=== PATIENT | female | born 1955 | race African-American/Black ===

== ENCOUNTER 2017-05-23 19:18 | Inpatient (IN) | payer MEDICAID ==
[~2017-05-23] VITALS: Ht 162.6 cm; Wt 99.8 kg
[~2017-05-23 19:18] MED LIST: AMLO10TA80 PO; ATOR10TA PO; FURO-151 PO; GLIP10TA10 PO; HYDR100T26 PO; LABE300T PO; SITA100T11 PO
[2017-05-23] MEDS ORDERED: IPRATROPIUM BROMIDE (0.02%) 0.5MG/2.5ML NEB HHN STA (22:37)
[2017-05-23] MEDS ORDERED: METHYLPREDNISOLONE SOD SUCC 125 MG/2 ML VIAL IV STA (22:37)
[2017-05-23] MEDS ORDERED: ALBUTEROL (0.083%) 2.5MG/3ML NEB HHN STA (22:37)
[2017-05-23 23:21] LABS: BASOPHILS % 0.3 % (0.0-2.0); EOSINOPHILS % 3.2 % (0.0-5.0); HEMATOCRIT. 43.6 % (36.0-48.0); HEMOGLOBIN. 13.7 g/dL (12.0-16.0); LYMPHOCYTES % 14.3 % (20.0-50.0); MEAN CORPUSCULAR HEMOGLOBIN 23.5 pg (28.0-32.0); MEAN CORPUSCULAR VOLUME 74.7 fL (81.0-99.0); MEAN PLATELET VOLUME 8.4 fl (7.4-10.4); MONOCYTES % 6.5 % (2.0-8.0); NEUTROPHILS % 75.7 % (40.0-76.0); PLATELET 227 x1000/uL (130-400); RED BLOOD CELL COUNT 5.84 mill/uL (4.2-5.4); RED CELL DISTRIBUTION WIDTH 19.8 % (11.6-14.6)
[2017-05-23 23:29] LABS: CARBON DIOXIDE 26 mEq/L (21-32); CHLORIDE 104 mEq/L (98-107)
[2017-05-23 23:31] LABS: D-DIMER 1.65 mg/L FEU (<0.50); INR 1.1; PROTHROMBIN TIME 11.7 sec (9.4-11.6)
[2017-05-23 23:36] LABS: TROPONIN I < 0.02 ng/mL (0.00-0.04)
[2017-05-23 23:58] LABS: BG BASE EXCESS -1.9 mmol/L (-2.0-2.0); BG CARBOXYHEMOGLOBIN 1.9 % (0.5-1.5); BG DEOXYHEMOGLOBIN 7.9 % (0.0-5.0); BG FRACTION INSPIRED OXYGEN 36; BG HCO3 ACT 24.3 mmol/L (22.0-26.0); BG METHEMOGLOBIN 0.3 % (0.0-1.5); BG OXYGEN SATURATION 91.9 % (92.0-98.5); BG OXYHEMOGLOBIN 89.9 % (94.0-97.0); BG PCO2 46.9 mmHg (35.0-45.0); BG PH 7.333 (7.350-7.450); BG PO2 67.7 mmHg (75.0-100.0); BG SAMPLE SITE RIGHT RADIAL; BG TOTAL HEMOGLOBIN 14.1 g/dL (12.0-18.0); BG VENT MODE NASAL CANNULA
[2017-05-24 02:02] LABS: CLARITY URINE CLEAR (CLEAR); COLOR URINE YELLOW (YELLOW); GLUCOSE URINE NEGATIVE (NEGATIVE); KETONES URINE NEGATIVE (NEGATIVE); LEUKOCYTE ESTERASE URINE TRACE (NEGATIVE); NITRITE URINE NEGATIVE (NEGATIVE); OCCULT BLOOD URINE NEGATIVE (NEGATIVE); PROTEIN URINE 2+ (NEGATIVE); SPECIFIC GRAVITY URINE 1.014 (1.005-1.030); UROBILINOGEN URINE 0.2 E.U./dL (0.2-1.0)
[2017-05-24] MEDS: FUROSEMIDE 100MG/10ML VIAL IVP SCH ×2 (02:29→02:47)
[2017-05-24 05:30] VITALS: BP 166/81
[2017-05-24] MEDS ORDERED: DEXTROSE 50% WATER 50ML SYRINGE IV PRN ×2 (06:30→14:30)
[2017-05-24 08:00] VITALS: BP 159/96
[2017-05-24] MEDS: BLOOD SUGAR DIAGNOSTIC STRIP TEST SCH ×4 (08:16→21:04)
[2017-05-24] MEDS: INSULIN LISPRO 100 UNITS/ML SUBCUT SCH ×4 (08:41→21:24)
[2017-05-24] MEDS: HYDRALAZINE HCL 100MG TABLET PO SCH ×2 (08:43→13:11)
[2017-05-24] MEDS: LINAGLIPTIN 5MG TABLET PO SCH (08:44)
[2017-05-24] MEDS: GLIPIZIDE 10MG TABLET PO SCH ×2 (08:44→18:34)
[2017-05-24] MEDS: ENOXAPARIN 40MG/0.4ML SYR SUBCUT SCH (08:45)
[2017-05-24] MEDS ORDERED: MEDICATION NOT ON FORMULARY EA (Sitagliptin Phosphate (Januvia) 1 TAB) PO SCH (09:00)
[2017-05-24] MEDS ORDERED: LABETALOL HCL 300MG TABLET PO SCH (09:00)
[2017-05-24 09:14] LABS: CREATINE KINASE 192 IU/L (26-192); CREATINE KINASE MB FRACTION 3.6 ng/mL (0.5-3.6); HDL CHOLESTEROL 52 mg/dL (40-59); LDL CHOLESTEROL 52 mg/dL (5-100); TROPONIN I < 0.02 ng/mL (0.00-0.04)
[2017-05-24 09:25] LABS: BG BASE EXCESS -2.6 mmol/L (-2.0-2.0); BG CARBOXYHEMOGLOBIN 1.8 % (0.5-1.5); BG DEOXYHEMOGLOBIN 8.4 % (0.0-5.0); BG FRACTION INSPIRED OXYGEN 36; BG HCO3 ACT 23.9 mmol/L (22.0-26.0); BG METHEMOGLOBIN 0.4 % (0.0-1.5); BG OXYGEN SATURATION 91.4 % (92.0-98.5); BG OXYHEMOGLOBIN 89.4 % (94.0-97.0); BG PCO2 48.1 mmHg (35.0-45.0); BG PH 7.315 (7.350-7.450); BG SAMPLE SITE RIGHT RADIAL; BG TOTAL HEMOGLOBIN 14.4 g/dL (12.0-18.0); BG VENT MODE NASAL CANNULA
[2017-05-24 12:00] VITALS: BP 159/96
[2017-05-24] MEDS ORDERED: LIDOCAINE HCL/PF 1% 2ML VIAL ONE (14:19)
[2017-05-24 16:00] VITALS: BP 149/86
[2017-05-24] MEDS ORDERED: BLOOD SUGAR DIAGNOSTIC STRIP TEST SCH (17:20)
[2017-05-24] MEDS: FUROSEMIDE 40MG/4ML VIAL IVP SCH (18:33)
[2017-05-24] MEDS: ISOSORBIDE MONONITRATE 30MG TABLET SR 24HR PO SCH (18:34)
[2017-05-24] MEDS: DILTIAZEM HCL 90MG TABLET PO SCH (18:35)
[2017-05-24 19:05] LABS: CREATINE KINASE 206 IU/L (26-192); CREATINE KINASE MB FRACTION 4.1 ng/mL (0.5-3.6); TROPONIN I < 0.02 ng/mL (0.00-0.04)
[2017-05-24 20:00] VITALS: BP 163/77
[2017-05-24] MEDS: CLONIDINE 0.1MG TABLET PO SCH (21:24)
[2017-05-24 22:58] LABS: *AMPHETAMINES SCREEN URINE NEGATIVE (NEGATIVE); *BARBITURATES SCREEN URINE NEGATIVE (NEGATIVE); *BENZODIAZEPINES SCREEN URINE NEGATIVE (NEGATIVE); *COCAINE SCREEN URINE NEGATIVE (NEGATIVE); CANNABINOID URINE SCREEN NEGATIVE (NEGATIVE); METHADONE URINE SCREEN NEGATIVE (NEGATIVE); OPIATES URINE SCREEN NEGATIVE (NEGATIVE); PHENCYCLIDINE URINE SCREEN NEGATIVE (NEGATIVE)
[2017-05-25] MEDS: DILTIAZEM HCL 90MG TABLET PO SCH ×2 (00:15→06:38)
[2017-05-25 00:20] VITALS: BP 150/69
[2017-05-25] MEDS: IPRATROPIUM/ALBUTEROL 0.5-3(2.5)MG/3ML NEB HHN PRN ×2 (02:22→21:08)
[2017-05-25 04:00] VITALS: BP 145/71
[2017-05-25] MEDS: BLOOD SUGAR DIAGNOSTIC STRIP TEST SCH ×4 (06:37→21:37)
[2017-05-25] MEDS: GLIPIZIDE 10MG TABLET PO SCH ×2 (06:38→18:13)
[2017-05-25] MEDS: FUROSEMIDE 40MG/4ML VIAL IVP SCH ×2 (06:38→18:14)
[2017-05-25] MEDS: CLONIDINE 0.1MG TABLET PO SCH ×3 (06:38→21:34)
[2017-05-25 07:20] LABS: BASOPHILS % 0.2 % (0.0-2.0); HEMATOCRIT. 39.2 % (36.0-48.0); HEMOGLOBIN. 12.3 g/dL (12.0-16.0); LYMPHOCYTES % 8.2 % (20.0-50.0); MEAN CORPUSCULAR HEMOGLOBIN 23.5 pg (28.0-32.0); MEAN CORPUSCULAR VOLUME 74.7 fL (81.0-99.0); MEAN PLATELET VOLUME 8.5 fl (7.4-10.4); NEUTROPHILS % 83.6 % (40.0-76.0); PLATELET 226 x1000/uL (130-400); RED BLOOD CELL COUNT 5.25 mill/uL (4.2-5.4); RED CELL DISTRIBUTION WIDTH 19.5 % (11.6-14.6)
[2017-05-25 07:50] VITALS: BP 159/72
[2017-05-25] MEDS: INSULIN LISPRO 100 UNITS/ML SUBCUT SCH ×4 (08:44→21:43)
[2017-05-25] MEDS: ISOSORBIDE MONONITRATE 30MG TABLET SR 24HR PO SCH (09:43)
[2017-05-25] MEDS: ENOXAPARIN 40MG/0.4ML SYR SUBCUT SCH (09:44)
[2017-05-25] MEDS: LINAGLIPTIN 5MG TABLET PO SCH (11:16)
[2017-05-25 15:17] VITALS: BP 156/76
[2017-05-25 19:35] VITALS: BP_SYST 155; BP_SYST 2; BP_DIAS 79
[2017-05-25] MEDS: NIFEDIPINE XL 60MG TAB PO SCH (21:34)
[2017-05-25] MEDS: INSULIN DETEMIR UD 100 UNITS/ML SYR SUBCUT SCH (21:41)
[2017-05-26 00:21] VITALS: BP 157/76
[2017-05-26 04:37] VITALS: BP 128/63
[2017-05-26] MEDS: IPRATROPIUM/ALBUTEROL 0.5-3(2.5)MG/3ML NEB HHN PRN (05:03)
[2017-05-26] MEDS: FUROSEMIDE 40MG/4ML VIAL IVP SCH (06:16)
[2017-05-26] MEDS: CLONIDINE 0.1MG TABLET PO SCH ×2 (06:16→13:34)
[2017-05-26 06:18] LABS: BASOPHILS % 0.2 % (0.0-2.0); EOSINOPHILS % 1.3 % (0.0-5.0); HEMATOCRIT. 41.1 % (36.0-48.0); LYMPHOCYTES % 8.3 % (20.0-50.0); MEAN CORPUSCULAR HEMOGLOBIN 23.6 pg (28.0-32.0); MEAN CORPUSCULAR VOLUME 74.9 fL (81.0-99.0); MEAN PLATELET VOLUME 7.9 fl (7.4-10.4); MONOCYTES % 5.4 % (2.0-8.0); NEUTROPHILS % 84.8 % (40.0-76.0); PLATELET 237 x1000/uL (130-400); RED BLOOD CELL COUNT 5.49 mill/uL (4.2-5.4); RED CELL DISTRIBUTION WIDTH 19.6 % (11.6-14.6)
[2017-05-26] MEDS: BLOOD SUGAR DIAGNOSTIC STRIP TEST SCH ×2 (06:26→12:20)
[2017-05-26 07:35] LABS: PHOSPHORUS 4.4 mg/dL (2.5-4.9); T4 FREE 1.19 ng/dL (0.76-1.46)
[2017-05-26 07:56] VITALS: BP 131/71
[2017-05-26] MEDS: GLIPIZIDE 10MG TABLET PO SCH (09:02)
[2017-05-26] MEDS: ISOSORBIDE MONONITRATE 30MG TABLET SR 24HR PO SCH (09:03)
[2017-05-26] MEDS: NIFEDIPINE XL 60MG TAB PO SCH (09:03)
[2017-05-26] MEDS: LINAGLIPTIN 5MG TABLET PO SCH (09:04)
[2017-05-26] MEDS: ENOXAPARIN 40MG/0.4ML SYR SUBCUT SCH (09:04)
[2017-05-26] MEDS: INSULIN LISPRO 100 UNITS/ML SUBCUT SCH ×2 (09:06→13:34)
[2017-05-26] MEDS: INSULIN DETEMIR UD 100 UNITS/ML SYR SUBCUT SCH (10:13)
[2017-05-26 11:53] VITALS: BP 130/63
[2017-05-26 14:01] VITALS: BP 130/63
[2017-05-27 15:09] LABS: ANTI-NUCLEAR ANTIBODIES DIRECT Negative (Negative)
[2017-05-28 06:11] LABS: COMPLEMENT C3 84 mg/dL (82-167)
[2017-05-31 14:18] LABS: ANA IFA Negative (.)
== END 2017-05-26 14:34 | disposition home or self-care (01) | DRG 133 ==
LOC: ER 21:35 → 6WST 05-24 01:01 → EDBEDREQTM 05-24 01:02 → EDBEDREQ 05-24 01:02 → ENRESERV 05-24 02:38
PROVIDERS: ADMIT Internal Medicine; ATTEND Internal Medicine
DX: J96.01 Acute respiratory failure with hypoxia (principal); I50.31 Acute diastolic (congestive) heart failure; E87.2 Acidosis; E11.22 Type 2 diabetes mellitus with diabetic chronic kidney disease; J44.1 Chronic obstructive pulmonary disease with (acute) exacerbation; N18.3 Chronic kidney disease, stage 3 (moderate); J96.02 Acute respiratory failure with hypercapnia; N13.30 Unspecified hydronephrosis; N39.0 Urinary tract infection, site not specified; E66.01 Morbid (severe) obesity due to excess calories; I13.0 Hypertensive heart and chronic kidney disease with heart failure and stage 1 through stage 4 chronic kidney disease, or unspecified chronic kidney disease; Z68.1 Body mass index [BMI] 19.9 or less, adult; Z79.84 Long term (current) use of oral hypoglycemic drugs; Z79.899 Other long term (current) drug therapy; Z99.81 Dependence on supplemental oxygen; Z98.891 History of uterine scar from previous surgery; Z82.49 Family history of ischemic heart disease and other diseases of the circulatory system
CPT/HCPCS: 36415; 36600; 71010; 71250; 76770; 80048; 80053; 80061; 80076; 80305; 81001; 81025; 82375; 82550; 82553; 82570; 82805; 82962; 83735; 83880; 84100; 84156; 84439; 84443; 84484; 85025; 85379; 85610; 86038; 86160; 86256; 87086; 93005; 93306; 93970; 94640; 96365; 96375; 99291; J1650; J1815; J1940; J2930; J3490; J7611; J7620

== ENCOUNTER 2018-09-21 11:51 | Inpatient (IN) | payer MEDICAID ==
[~2018-09-21] VITALS: Ht 162.6 cm; Wt 90.7 kg
[~2018-09-21 11:51] MED LIST changes: +ALBU18HF2 IH; +CARV6.2548 PO; -HYDR100T26 PO; -LABE300T PO; +POTA10CA42 PO; +SPIR25TA6 PO
[2018-09-21] MEDS ORDERED: ONDANSETRON HCL 4MG/2ML INJ IV STA (12:22)
[2018-09-21] MEDS ORDERED: ASPIRIN 81MG TABLET PO ONE (12:30)
[2018-09-21] MEDS ORDERED: FUROSEMIDE 40MG/4ML VIAL IV ONE (12:30)
[2018-09-21] MEDS ORDERED: NITROGLYCERIN OINT 1GM/INCH UDPKT TD ONE (12:30)
[2018-09-21] MEDS ORDERED: ACETAMINOPHEN 325MG TABLET PO ONE (12:30)
[2018-09-21 13:05] LABS: CHLORIDE 106 mEq/L (98-107)
[2018-09-21 13:07] LABS: BASOPHILS % 0.6 % (0.0-2.0); EOSINOPHILS % 2.3 % (0.0-5.0); HEMATOCRIT. 40.2 % (36.0-48.0); HEMOGLOBIN. 12.8 g/dL (12.0-16.0); LYMPHOCYTES % 15.8 % (20.0-50.0); MEAN CORPUSCULAR HEMOGLOBIN 25.3 pg (28.0-32.0); MEAN PLATELET VOLUME 7.5 fl (7.4-10.4); MONOCYTES % 5.7 % (2.0-8.0); NEUTROPHILS % 75.6 % (40.0-76.0); PLATELET 233 x1000/uL (130-400); RED BLOOD CELL COUNT 5.08 mill/uL (4.2-5.4); RED CELL DISTRIBUTION WIDTH 17.7 % (11.6-14.6)
[2018-09-21 13:42] LABS: INR 1.1; PARTIAL THROMBOPLASTIN TIME 29.6 sec (23.4-31.0); PROTHROMBIN TIME 10.9 sec (9.1-11.1)
[2018-09-21] MEDS ORDERED: ONDANSETRON HCL 4MG/2ML INJ IV PRN (14:45)
[2018-09-21] MEDS ORDERED: LORAZEPAM 0.5MG TABLET PO PRN (14:45)
[2018-09-21] MEDS ORDERED: CLONIDINE 0.1MG TABLET PO PRN ×2 (14:45→17:30)
[2018-09-21] MEDS ORDERED: IPRATROPIUM/ALBUTEROL 0.5-3(2.5)MG/3ML NEB INH PRN (14:45)
[2018-09-21] MEDS ORDERED: HYDROCODONE/ACETAMINOPHEN 5/325MG TABLET PO PRN (14:45)
[2018-09-21] MEDS ORDERED: DOCUSATE SODIUM 100MG CAPSULE PO PRN (14:45)
[2018-09-21 15:04] LABS: CREATINE KINASE MB FRACTION 5.4 ng/mL (0.5-3.6)
[2018-09-21] MEDS ORDERED: AMLODIPINE 10MG TABLET PO NR (16:15)
[2018-09-21] MEDS ORDERED: CARVEDILOL 6.25 MG TABLET PO NR (16:30)
[2018-09-21 18:28] VITALS: BP 167/79
[2018-09-21] MEDS: FUROSEMIDE 40MG TABLET PO SCH (18:46)
[2018-09-21 18:49] VITALS: BP 163/67
[2018-09-21 20:00] VITALS: BP 172/80
[2018-09-21] MEDS ORDERED: DEXTROSE 50% WATER 50ML SYRINGE IV PRN (20:15)
[2018-09-21] MEDS: INSULIN LISPRO 100 UNITS/ML SUBCUT SCH (21:00)
[2018-09-21] MEDS: BLOOD SUGAR DIAGNOSTIC STRIP TEST SCH (21:05)
[2018-09-21] MEDS: ATORVASTATIN CALCIUM 10MG TABLET PO SCH (21:05)
[2018-09-22] VITALS: BP 159/76
[2018-09-22 01:10] LABS: CLARITY URINE CLEAR (CLEAR); COLOR URINE YELLOW (YELLOW); KETONES URINE NEGATIVE (NEGATIVE); LEUKOCYTE ESTERASE URINE NEGATIVE (NEGATIVE); NITRITE URINE NEGATIVE (NEGATIVE); OCCULT BLOOD URINE NEGATIVE (NEGATIVE); PROTEIN URINE 3+ (NEGATIVE); SPECIFIC GRAVITY URINE 1.011 (1.005-1.030); UROBILINOGEN URINE 0.2 E.U./dL (0.2-1.0)
[2018-09-22 01:22] LABS: *BARBITURATES SCREEN URINE NEGATIVE (NEGATIVE); *BENZODIAZEPINES SCREEN URINE NEGATIVE (NEGATIVE); *COCAINE SCREEN URINE NEGATIVE (NEGATIVE); CANNABINOID URINE SCREEN NEGATIVE (NEGATIVE)
[2018-09-22 01:23] LABS: *AMPHETAMINES SCREEN URINE NEGATIVE (NEGATIVE); METHADONE URINE SCREEN NEGATIVE (NEGATIVE); OPIATES URINE SCREEN NEGATIVE (NEGATIVE); PHENCYCLIDINE URINE SCREEN NEGATIVE (NEGATIVE)
[2018-09-22 04:00] VITALS: BP 148/86
[2018-09-22] MEDS: BLOOD SUGAR DIAGNOSTIC STRIP TEST SCH ×4 (06:34→21:05)
[2018-09-22] MEDS: INSULIN LISPRO 100 UNITS/ML SUBCUT SCH ×4 (06:34→21:00)
[2018-09-22 08:00] VITALS: BP 162/75
[2018-09-22] MEDS: ENOXAPARIN 40MG/0.4ML SYR SUBCUT SCH (08:32)
[2018-09-22] MEDS: FUROSEMIDE 40MG TABLET PO SCH (08:33)
[2018-09-22] MEDS ORDERED: SPIRONOLACTONE 25MG TABLET PO SCH (09:00)
[2018-09-22] MEDS ORDERED: CARVEDILOL 6.25 MG TABLET PO SCH (09:00)
[2018-09-22] MEDS ORDERED: AMLODIPINE 10MG TABLET PO SCH (09:00)
[2018-09-22 09:45] LABS: HEMATOCRIT. 38.6 % (36.0-48.0); HEMOGLOBIN. 12.2 g/dL (12.0-16.0); MEAN CORPUSCULAR HEMOGLOBIN 25.3 pg (28.0-32.0); MEAN CORPUSCULAR VOLUME 79.9 fL (81.0-99.0); MEAN PLATELET VOLUME 7.7 fl (7.4-10.4); PLATELET 218 x1000/uL (130-400); RED BLOOD CELL COUNT 4.84 mill/uL (4.2-5.4); RED CELL DISTRIBUTION WIDTH 17.3 % (11.6-14.6)
[2018-09-22 10:07] LABS: PHOSPHORUS 5.1 mg/dL (2.5-4.9)
[2018-09-22 12:00] VITALS: BP 151/70
[2018-09-22 16:00] VITALS: BP 186/85
[2018-09-22] MEDS: DILTIAZEM HCL 60MG TABLET PO SCH (17:20)
[2018-09-22] MEDS: HYDRALAZINE 20MG/ML VIAL IV PRN (17:23)
[2018-09-22 20:00] VITALS: BP 154/80
[2018-09-22] MEDS: HYDRALAZINE HCL 25MG TABLET PO SCH (21:05)
[2018-09-22] MEDS: ATORVASTATIN CALCIUM 10MG TABLET PO SCH (21:05)
[2018-09-22 22:34] LABS: PLATELET ESTIMATE NORMAL
[2018-09-23] VITALS (7 sets, daily range): BP systolic 137–187; BP diastolic 69–84
[2018-09-23] MEDS: ACETAMINOPHEN 325MG TABLET PO PRN ×2 (00:50→23:03)
[2018-09-23] MEDS: BLOOD SUGAR DIAGNOSTIC STRIP TEST SCH ×4 (06:20→20:33)
[2018-09-23] MEDS: DILTIAZEM HCL 60MG TABLET PO SCH ×2 (06:20)
[2018-09-23] MEDS: HYDRALAZINE HCL 25MG TABLET PO SCH (06:20)
[2018-09-23] MEDS: INSULIN LISPRO 100 UNITS/ML SUBCUT SCH ×4 (06:28→20:39)
[2018-09-23 07:18] LABS: BASOPHILS % 0.4 % (0.0-2.0); EOSINOPHILS % 3.4 % (0.0-5.0); HEMATOCRIT. 38.1 % (36.0-48.0); HEMOGLOBIN. 12.1 g/dL (12.0-16.0); LYMPHOCYTES % 20.6 % (20.0-50.0); MEAN CORPUSCULAR HEMOGLOBIN 25.2 pg (28.0-32.0); MEAN CORPUSCULAR VOLUME 79.3 fL (81.0-99.0); MEAN PLATELET VOLUME 7.8 fl (7.4-10.4); MONOCYTES % 8.5 % (2.0-8.0); NEUTROPHILS % 67.1 % (40.0-76.0); PLATELET 231 x1000/uL (130-400); RED CELL DISTRIBUTION WIDTH 17.4 % (11.6-14.6)
[2018-09-23 07:31] LABS: CHLORIDE 103 mEq/L (98-107)
[2018-09-23 08:06] LABS: PHOSPHORUS 4.3 mg/dL (2.5-4.9)
[2018-09-23] MEDS: ENOXAPARIN 40MG/0.4ML SYR SUBCUT SCH (08:21)
[2018-09-23] MEDS: HYDRALAZINE 20MG/ML VIAL IV PRN ×2 (08:21→16:21)
[2018-09-23] MEDS: FUROSEMIDE 40MG TABLET PO SCH ×2 (08:21→11:45)
[2018-09-23] MEDS: DILTIAZEM HCL 90MG TABLET PO SCH ×3 (13:42→23:04)
[2018-09-23] MEDS: CLONIDINE 0.1MG TABLET PO SCH ×2 (13:43→22:00)
[2018-09-23] MEDS: ATORVASTATIN CALCIUM 10MG TABLET PO SCH (20:36)
[2018-09-23 21:34] LABS: HEPATITIS B SURFACE ANTIGEN NEGATIVE
[2018-09-24] VITALS: BP 177/77
[2018-09-24 04:00] VITALS: BP 168/70
[2018-09-24] MEDS: DILTIAZEM HCL 90MG TABLET PO SCH ×2 (05:00→11:42)
[2018-09-24] MEDS: CLONIDINE 0.1MG TABLET PO SCH (05:00)
[2018-09-24] MEDS: BLOOD SUGAR DIAGNOSTIC STRIP TEST SCH ×2 (06:11→11:42)
[2018-09-24] MEDS: INSULIN LISPRO 100 UNITS/ML SUBCUT SCH ×2 (06:32→11:44)
[2018-09-24 08:00] VITALS: BP 162/77
[2018-09-24] MEDS: ENOXAPARIN 40MG/0.4ML SYR SUBCUT SCH (09:04)
[2018-09-24] MEDS: FUROSEMIDE 40MG TABLET PO SCH (09:04)
[2018-09-24] MEDS ORDERED: DILTIAZEM HCL 120MG CAPSULE CD 24HR PO SCH (12:00)
[2018-09-24 12:02] VITALS: BP 171/80
[2018-09-24 13:29] VITALS: BP 171/71
[2018-09-24] MEDS: HYDRALAZINE 20MG/ML VIAL IV PRN (13:38)
[2018-09-24] MEDS ORDERED: CLONIDINE 0.3MG TABLET PO SCH (14:00)
[2018-09-24] MEDS ORDERED: HYDRALAZINE HCL 50MG TABLET PO SCH (21:00)
[2018-09-25 09:06] LABS: IMMUNOGLOBULIN A 312 mg/dL (87-352); IMMUNOGLOBULIN G 975 mg/dL (700-1600); IMMUNOGLOBULIN M 96 mg/dL (26-217)
[2018-09-25 17:10] LABS: A/G RATIO 1.1 (0.7-1.7); ALPHA-1-GLOBULIN 0.3 g/dL (0.0-0.4); ALPHA-2-GLOBULIN 1.1 g/dL (0.4-1.0); BETA GLOBULIN 1.2 g/dL (0.7-1.3); GAMMA GLOBULINS 1.1 g/dL (0.4-1.8); GLOBULIN TOTAL 3.7 g/dL (2.2-3.9); M-SPIKE Not Observed g/dL (Not Observed); TOTAL PROTEIN SERUM 7.7 g/dL (6.0-8.5)
[2018-09-26 09:06] LABS: GLOMERULAR BASEMENT MEMB AB 6 units (0-20)
[2018-09-26 13:06] LABS: COMPLEMENT C3 154 mg/dL (82-167)
[2018-09-26 15:09] LABS: ANTI-MYELOPEROXIDASE AB < 9.0 U/mL (0.0-9.0); ANTI-PROTEINASE 3 ABS 5.3 U/mL (0.0-3.5)
[2018-09-27 09:07] LABS: ANTI-DNA DOUBLE STRANDED QUANT 5 IU/mL (0-9); ANTI-NUCLEAR ANTIBODIES DIRECT Negative (Negative)
[2018-09-27 14:19] LABS: ATYPICAL P-ANCA <1:20 titer (Neg:<1:20); CYTOPLASMIC C-ANCA <1:20 titer (Neg:<1:20); PERINUCLEAR P-ANCA <1:20 titer (Neg:<1:20)
== END 2018-09-24 14:13 | disposition home or self-care (01) | DRG 199 ==
LOC: ER 11:51 → 5WST 13:36 → EDBEDREQ 14:29 → EDBEDREQTM 14:29 → ENRESERV 16:04
PROVIDERS: ADMIT Internal Medicine; ATTEND Internal Medicine
DX: I16.0 Hypertensive urgency (principal); I24.9 Acute ischemic heart disease, unspecified; E11.22 Type 2 diabetes mellitus with diabetic chronic kidney disease; N17.9 Acute kidney failure, unspecified; E11.65 Type 2 diabetes mellitus with hyperglycemia; E66.01 Morbid (severe) obesity due to excess calories; N18.4 Chronic kidney disease, stage 4 (severe); I27.20 Pulmonary hypertension, unspecified; N13.30 Unspecified hydronephrosis; R07.89 Other chest pain; I13.0 Hypertensive heart and chronic kidney disease with heart failure and stage 1 through stage 4 chronic kidney disease, or unspecified chronic kidney disease; D64.9 Anemia, unspecified; J44.9 Chronic obstructive pulmonary disease, unspecified; Z79.84 Long term (current) use of oral hypoglycemic drugs; Z82.49 Family history of ischemic heart disease and other diseases of the circulatory system; Z86.73 Personal history of transient ischemic attack (TIA), and cerebral infarction without residual deficits; Z99.81 Dependence on supplemental oxygen; Z98.891 History of uterine scar from previous surgery; Z88.8 Allergy status to other drugs, medicaments and biological substances; Z79.899 Other long term (current) drug therapy; Z68.34 Body mass index [BMI] 34.0-34.9, adult; I50.32 Chronic diastolic (congestive) heart failure; M94.0 Chondrocostal junction syndrome [Tietze]
CPT/HCPCS: 36415; 71045; 76770; 80048; 80061; 80305; 82550; 82553; 82784; 82962; 83036; 83520; 83735; 83880; 84100; 84155; 84165; 84443; 84484; 86038; 86160; 86225; 86256; 86334; 86803; 87340; 93005; 93306; 93970; 96374; 96375; 99285; J0360; J1650; J1815; J1940; J2405

== ENCOUNTER 2019-11-27 10:36 | Inpatient (IN) | payer MEDICAID ==
[~2019-11-27] VITALS: Ht 175.3 cm; Wt 74.8 kg
[2019-11-27] MEDS ORDERED: ONDANSETRON HCL 4MG/2ML INJ IV STA (10:53)
[2019-11-27] MEDS ORDERED: MORPHINE SULFATE 4 MG/ML CPJ (NOT FOR IM USE) IV STA (10:53)
[2019-11-27 11:13] LABS: BASOPHILS % 0.4 % (0.0-2.0); EOSINOPHILS % 2.6 % (0.0-5.0); HEMATOCRIT. 38.1 % (36.0-48.0); HEMOGLOBIN. 12.7 g/dL (12.0-16.0); LYMPHOCYTES % 14.5 % (20.0-50.0); MEAN CORPUSCULAR HEMOGLOBIN 29.8 pg (28.0-32.0); MEAN CORPUSCULAR VOLUME 89.5 fL (81.0-99.0); MEAN PLATELET VOLUME 8.4 fl (7.4-10.4); MONOCYTES % 7.4 % (2.0-8.0); NEUTROPHILS % 75.1 % (40.0-76.0); PLATELET 157 x1000/uL (130-400); RED BLOOD CELL COUNT 4.26 mill/uL (4.2-5.4); RED CELL DISTRIBUTION WIDTH 18.2 % (11.6-14.6)
[2019-11-27 11:20] LABS: CHLORIDE 103 mEq/L (98-107)
[2019-11-27 11:37] LABS: INR 1.1; PARTIAL THROMBOPLASTIN TIME 66.9 sec (23.4-31.0); PROTHROMBIN TIME 11.4 sec (9.6-11.0)
[2019-11-27 15:15] VITALS: BP 171/81
[2019-11-27] MEDS ORDERED: LABE300T3 PO (15:44)
[2019-11-27] MEDS ORDERED: HYDR100T26 PO (15:45)
[2019-11-27 16:00] VITALS: BP 132/74
[2019-11-27] MEDS ORDERED: ACETAMINOPHEN 325MG TABLET PO PRN (16:00)
[2019-11-27] MEDS ORDERED: ONDANSETRON HCL 4MG/2ML INJ IV PRN (16:00)
[2019-11-27] MEDS ORDERED: GUAIFENESIN 200MG/10ML SUGAR FREE UDC PO PRN (16:00)
[2019-11-27] MEDS ORDERED: HYDROCODONE/ACETAMINOPHEN 5/325MG TABLET PO PRN (16:00)
[2019-11-27] MEDS ORDERED: NON FORMULARY PATIENT HOME MED XX SCH (16:00)
[2019-11-27] MEDS ORDERED: LORAZEPAM 0.5MG TABLET PO PRN (16:00)
[2019-11-27] MEDS ORDERED: IPRATROPIUM/ALBUTEROL 0.5-3(2.5)MG/3ML NEB HHN PRN (16:00)
[2019-11-27] MEDS ORDERED: DOCUSATE SODIUM 100MG CAPSULE PO PRN (16:00)
[2019-11-27] MEDS ORDERED: NITROGLYCERIN 0.4MG TABLET SL SL PRN (16:00)
[2019-11-27] MEDS ORDERED: DEXTROSE 50% WATER 50ML SYRINGE IV PRN (16:00)
[2019-11-27] MEDS: LABETALOL HCL 300MG TABLET PO SCH (17:00)
[2019-11-27] MEDS: FUROSEMIDE 40MG TABLET PO SCH (17:00)
[2019-11-27] MEDS: LINAGLIPTIN 5MG TABLET PO SCH (17:00)
[2019-11-27] MEDS: BLOOD SUGAR DIAGNOSTIC STRIP TEST SCH ×2 (18:07→21:00)
[2019-11-27] MEDS: INSULIN LISPRO 100 UNITS/ML SUBCUT SCH ×2 (18:07→22:56)
[2019-11-27] MEDS: GLIPIZIDE 10MG TABLET PO SCH (18:10)
[2019-11-27 20:00] VITALS: BP 149/53
[2019-11-27] MEDS ORDERED: HYDRALAZINE HCL 100MG TABLET PO SCH (21:00)
[2019-11-27] MEDS: HEPARIN 5000 UNITS/ML VIAL SUBCUT SCH (22:50)
[2019-11-28] VITALS (7 sets, daily range): BP systolic 148–181; BP diastolic 67–89
[2019-11-28 07:04] LABS: BASOPHILS % 0.4 % (0.0-2.0); EOSINOPHILS % 4.5 % (0.0-5.0); HEMATOCRIT. 37.2 % (36.0-48.0); HEMOGLOBIN. 12.3 g/dL (12.0-16.0); LYMPHOCYTES % 20.7 % (20.0-50.0); MEAN CORPUSCULAR HEMOGLOBIN 29.8 pg (28.0-32.0); MEAN CORPUSCULAR VOLUME 90.2 fL (81.0-99.0); MEAN PLATELET VOLUME 8.2 fl (7.4-10.4); NEUTROPHILS % 66.4 % (40.0-76.0); PLATELET 152 x1000/uL (130-400); RED BLOOD CELL COUNT 4.12 mill/uL (4.2-5.4); RED CELL DISTRIBUTION WIDTH 18.3 % (11.6-14.6)
[2019-11-28 07:17] LABS: PHOSPHORUS 6.2 mg/dL (2.5-4.9)
[2019-11-28] MEDS: BLOOD SUGAR DIAGNOSTIC STRIP TEST SCH ×3 (08:05→17:34)
[2019-11-28] MEDS: INSULIN LISPRO 100 UNITS/ML SUBCUT SCH ×3 (08:10→17:50)
[2019-11-28] MEDS: LABETALOL HCL 300MG TABLET PO SCH (09:00)
[2019-11-28] MEDS: LINAGLIPTIN 5MG TABLET PO SCH (09:07)
[2019-11-28] MEDS: GLIPIZIDE 10MG TABLET PO SCH ×2 (09:07→17:50)
[2019-11-28] MEDS: FUROSEMIDE 40MG TABLET PO SCH (09:07)
[2019-11-28] MEDS: HEPARIN 5000 UNITS/ML VIAL SUBCUT SCH (09:08)
== END 2019-11-28 19:20 | disposition home or self-care (01) | DRG 203 ==
LOC: ER 10:36 → EDBEDREQ 11:06 → 7WST 12:52 → EDBEDREQ 12:56 → EDBEDREQTM 12:56 → ENRESERV 13:13 → 6WST 11-28 12:16
PROVIDERS: ADMIT Internal Medicine; ATTEND Internal Medicine
PROC: 5A1D70Z Performance of Urinary Filtration, Intermittent, Less than 6 Hours Per Day (ICD-10-PCS; principal; 2019-11-27)
DX: M94.0 Chondrocostal junction syndrome [Tietze] (principal); I13.2 Hypertensive heart and chronic kidney disease with heart failure and with stage 5 chronic kidney disease, or end stage renal disease; I27.21 Secondary pulmonary arterial hypertension; E11.22 Type 2 diabetes mellitus with diabetic chronic kidney disease; N18.6 End stage renal disease; I42.9 Cardiomyopathy, unspecified; Z99.81 Dependence on supplemental oxygen; J44.9 Chronic obstructive pulmonary disease, unspecified; D72.810 Lymphocytopenia; I50.9 Heart failure, unspecified; Z86.73 Personal history of transient ischemic attack (TIA), and cerebral infarction without residual deficits; Z88.8 Allergy status to other drugs, medicaments and biological substances; Z79.84 Long term (current) use of oral hypoglycemic drugs; Z79.899 Other long term (current) drug therapy; Z82.49 Family history of ischemic heart disease and other diseases of the circulatory system; Z99.2 Dependence on renal dialysis; Z88.6 Allergy status to analgesic agent
CPT/HCPCS: 36415; 71045; 80048; 80053; 80061; 82962; 83036; 83735; 83880; 84100; 84484; 85025; 93005; 93306; 99285; J1644; J1815; J2270; J2405

== ENCOUNTER 2019-12-06 09:26 | Inpatient (IN) | payer MEDICAID ==
[~2019-12-06] VITALS: Ht 167.6 cm; Wt 92.8 kg
[~2019-12-06 09:26] MED LIST changes: -AMLO10TA80 PO; -ATOR10TA PO; -CARV6.2548 PO; +HYDR100T26 PO; +LABE300T3 PO; -POTA10CA42 PO; -SPIR25TA6 PO
[2019-12-06 11:47] LABS: BASOPHILS % 0.5 % (0.0-2.0); EOSINOPHILS % 2.8 % (0.0-5.0); HEMATOCRIT. 39.6 % (36.0-48.0); HEMOGLOBIN. 12.9 g/dL (12.0-16.0); LYMPHOCYTES % 23.2 % (20.0-50.0); MEAN CORPUSCULAR HEMOGLOBIN 29.8 pg (28.0-32.0); MEAN CORPUSCULAR VOLUME 91.7 fL (81.0-99.0); MEAN PLATELET VOLUME 9.5 fl (7.4-10.4); MONOCYTES % 8.4 % (2.0-8.0); NEUTROPHILS % 65.1 % (40.0-76.0); PLATELET 193 x1000/uL (130-400); RED BLOOD CELL COUNT 4.32 mill/uL (4.2-5.4); RED CELL DISTRIBUTION WIDTH 18.2 % (11.6-14.6)
[2019-12-06 11:54] LABS: CHLORIDE 104 mEq/L (98-107)
[2019-12-06] MEDS ORDERED: DEXTROSE 50% WATER 50ML SYRINGE IV ONE (18:00)
[2019-12-06] MEDS ORDERED: INSULIN REGULAR (HUMULIN R) 300UNITS/3ML IV ONE (18:00)
[2019-12-06] MEDS ORDERED: SODIUM POLYSTYRENE SULFONATE 15 G/60 ML BOT PO ONE (18:15)
[2019-12-06] MEDS ORDERED: SODIUM BICARBONATE 8.4% 1 MEQ/ML 50ML SYR IV ONE ×2 (18:19→18:45)
[2019-12-06 20:25] VITALS: BP 184/93
[2019-12-06] MEDS ORDERED: DIPHENHYDRAMINE 25MG CAPSULE PO PRN (22:30)
[2019-12-06] MEDS ORDERED: MORPHINE SULFATE 2 MG/ML CPJ (NOT FOR IM USE) IV PRN (22:30)
[2019-12-06] MEDS ORDERED: DEXTROSE 50% WATER 50ML SYRINGE IV PRN (22:30)
[2019-12-06] MEDS ORDERED: ACETAMINOPHEN 325MG TABLET PO PRN (22:30)
[2019-12-06] MEDS ORDERED: SODIUM POLYSTYRENE SULFONATE 15 G/60 ML BOT PO NR (23:30)
[2019-12-07] VITALS (76 sets, daily range): BP systolic 88–195; BP diastolic 51–94
[2019-12-07] MEDS: AMLODIPINE 10MG TABLET PO SCH (00:02)
[2019-12-07 00:56] LABS: CHLORIDE 102 mEq/L (98-107)
[2019-12-07] MEDS ORDERED: HYDRALAZINE 20MG/ML VIAL IV PRN (01:00)
[2019-12-07 01:02] LABS: LDL CHOLESTEROL 98 mg/dL (5-100)
[2019-12-07 01:06] LABS: HDL CHOLESTEROL 71 mg/dL (40-59)
[2019-12-07] MEDS ORDERED: LORAZEPAM 2MG/ML CPJ IV PRN ×2 (01:30→03:45)
[2019-12-07 05:14] LABS: HEMATOCRIT. 40.9 % (36.0-48.0); HEMOGLOBIN. 13.2 g/dL (12.0-16.0); MEAN CORPUSCULAR HEMOGLOBIN 29.6 pg (28.0-32.0); MEAN CORPUSCULAR VOLUME 91.7 fL (81.0-99.0); MEAN PLATELET VOLUME 9.5 fl (7.4-10.4); PLATELET 238 x1000/uL (130-400); RED BLOOD CELL COUNT 4.46 mill/uL (4.2-5.4); RED CELL DISTRIBUTION WIDTH 18.2 % (11.6-14.6)
[2019-12-07 05:53] LABS: PHOSPHORUS 8.8 mg/dL (2.5-4.9)
[2019-12-07] MEDS: LEVETIRACETAM 1,000 MG in SODIUM CHLORIDE 0.9% 100 ML IV SCH ×2 (06:17→23:51)
[2019-12-07] MEDS: INSULIN LISPRO 100 UNITS/ML SUBCUT SCH ×4 (07:00→17:00)
[2019-12-07] MEDS: SEVELAMER CARBONATE 800 MG TABLET PO SCH ×3 (07:00→17:00)
[2019-12-07] MEDS: BLOOD SUGAR DIAGNOSTIC STRIP TEST SCH ×4 (07:00→17:20)
[2019-12-07] MEDS: ASPIRIN 81MG EC TABLET PO SCH (09:00)
[2019-12-07] MEDS: METOPROLOL TARTRATE 50MG TABLET PO SCH ×2 (09:00→23:51)
[2019-12-07] MEDS: ISOSORBIDE MONONITRATE 60MG TABLET SR 24HR PO SCH (09:00)
[2019-12-07] MEDS: FOLIC ACID/VITAMIN B COMP W-C TABLET PO SCH (09:00)
[2019-12-07] MEDS ORDERED: AMLODIPINE 10MG TABLET PO SCH (09:00)
[2019-12-07 09:51] LABS: BG BASE EXCESS -5.5 mmol/L (-2.0-2.0); BG CARBOXYHEMOGLOBIN 0.3 % (0.5-1.5); BG DEOXYHEMOGLOBIN 3.6 % (0.0-5.0); BG FRACTION INSPIRED OXYGEN 48; BG HCO3 ACT 21.3 mmol/L (22.0-26.0); BG OXYGEN SATURATION 96.4 % (92.0-98.5); BG OXYHEMOGLOBIN 96.1 % (94.0-97.0); BG PCO2 46.3 mmHg (35.0-45.0); BG SAMPLE SITE RIGHT BRACHIAL; BG TOTAL HEMOGLOBIN 12.6 g/dL (12.0-18.0); BG VENT MODE NASAL CANNULA
[2019-12-07 12:49] LABS: PLATELET ESTIMATE NORMAL
[2019-12-07] MEDS ORDERED: CEFEPIME 2,000 MG in DEXT 5% WATER 100 ML IV SCH (22:30)
[2019-12-07] MEDS: ATORVASTATIN CALCIUM 40MG TABLET PO SCH (23:51)
[2019-12-08] VITALS (44 sets, daily range): BP systolic 102–210; BP diastolic 53–116
[2019-12-08] MEDS ORDERED: CEFEPIME 1,000 MG in DEXTROSE 5% WATER 50 ML IV NR (01:00)
[2019-12-08 05:44] LABS: BASOPHILS % 0.2 % (0.0-2.0); EOSINOPHILS % 0.4 % (0.0-5.0); HEMATOCRIT. 38.4 % (36.0-48.0); HEMOGLOBIN. 12.8 g/dL (12.0-16.0); LYMPHOCYTES % 7.3 % (20.0-50.0); MEAN CORPUSCULAR HEMOGLOBIN 29.8 pg (28.0-32.0); MEAN CORPUSCULAR VOLUME 89.9 fL (81.0-99.0); MEAN PLATELET VOLUME 9.2 fl (7.4-10.4); MONOCYTES % 4.9 % (2.0-8.0); NEUTROPHILS % 87.2 % (40.0-76.0); PLATELET 200 x1000/uL (130-400); RED BLOOD CELL COUNT 4.28 mill/uL (4.2-5.4); RED CELL DISTRIBUTION WIDTH 17.3 % (11.6-14.6)
[2019-12-08 05:51] LABS: PHOSPHORUS 5.9 mg/dL (2.5-4.9)
[2019-12-08] MEDS: BLOOD SUGAR DIAGNOSTIC STRIP TEST SCH ×4 (06:52→21:41)
[2019-12-08] MEDS: INSULIN LISPRO 100 UNITS/ML SUBCUT SCH ×4 (06:53→21:00)
[2019-12-08] MEDS: SEVELAMER CARBONATE 800 MG TABLET PO SCH ×3 (07:01→18:10)
[2019-12-08] MEDS: LEVETIRACETAM 1,000 MG in SODIUM CHLORIDE 0.9% 100 ML IV SCH ×2 (08:23→22:12)
[2019-12-08] MEDS: ASPIRIN 81MG EC TABLET PO SCH (08:23)
[2019-12-08] MEDS: FOLIC ACID/VITAMIN B COMP W-C TABLET PO SCH (08:24)
[2019-12-08] MEDS: ZINC SULFATE 220 MG ( 50 ) CAPSULE PO SCH (08:24)
[2019-12-08] MEDS: AMLODIPINE 10MG TABLET PO SCH (08:24)
[2019-12-08] MEDS: METOPROLOL TARTRATE 50MG TABLET PO SCH ×2 (08:25→21:41)
[2019-12-08] MEDS: ISOSORBIDE MONONITRATE 60MG TABLET SR 24HR PO SCH (08:25)
[2019-12-08] MEDS: ASCORBIC ACID 500 MG TABLET PO SCH ×2 (08:25→21:41)
[2019-12-08] MEDS ORDERED: HYDROXYCHLOROQUINE SULFATE 200MG TABLET PO SCH ×2 (13:30)
[2019-12-08] MEDS: ATORVASTATIN CALCIUM 40MG TABLET PO SCH (21:41)
[2019-12-09] VITALS: BP 148/82
[2019-12-09] MEDS: CEFEPIME 500 MG in DEXTROSE 5% WATER 50 ML IV SCH (02:30)
[2019-12-09 04:00] VITALS: BP 159/74
[2019-12-09] MEDS: BLOOD SUGAR DIAGNOSTIC STRIP TEST SCH ×4 (07:32→21:01)
[2019-12-09 08:00] VITALS: BP 178/89
[2019-12-09] MEDS: INSULIN LISPRO 100 UNITS/ML SUBCUT SCH ×4 (08:10→21:00)
[2019-12-09] MEDS: FOLIC ACID/VITAMIN B COMP W-C TABLET PO SCH (08:34)
[2019-12-09] MEDS: ISOSORBIDE MONONITRATE 60MG TABLET SR 24HR PO SCH (08:35)
[2019-12-09] MEDS: ASCORBIC ACID 500 MG TABLET PO SCH ×2 (08:35→20:51)
[2019-12-09] MEDS: ASPIRIN 81MG EC TABLET PO SCH (08:35)
[2019-12-09] MEDS: ZINC SULFATE 220 MG ( 50 ) CAPSULE PO SCH (08:35)
[2019-12-09] MEDS: LEVETIRACETAM 1,000 MG in SODIUM CHLORIDE 0.9% 100 ML IV SCH ×2 (08:38→20:51)
[2019-12-09] MEDS: SEVELAMER CARBONATE 800 MG TABLET PO SCH ×3 (08:38→20:52)
[2019-12-09] MEDS ORDERED: HYDROXYCHLOROQUINE SULFATE 200MG TABLET PO SCH (09:00)
[2019-12-09] MEDS: METOPROLOL TARTRATE 50MG TABLET PO SCH ×2 (10:38→20:51)
[2019-12-09] MEDS: AMLODIPINE 10MG TABLET PO SCH ×2 (10:38→10:40)
[2019-12-09 12:00] VITALS: BP 141/76
[2019-12-09 13:58] LABS: BASOPHILS % 0.5 % (0.0-2.0); EOSINOPHILS % 1.3 % (0.0-5.0); HEMATOCRIT. 36.8 % (36.0-48.0); HEMOGLOBIN. 12.1 g/dL (12.0-16.0); LYMPHOCYTES % 11.4 % (20.0-50.0); MEAN CORPUSCULAR HEMOGLOBIN 29.8 pg (28.0-32.0); MEAN CORPUSCULAR VOLUME 90.6 fL (81.0-99.0); MEAN PLATELET VOLUME 9.5 fl (7.4-10.4); MONOCYTES % 8.4 % (2.0-8.0); NEUTROPHILS % 78.4 % (40.0-76.0); PLATELET 200 x1000/uL (130-400); RED BLOOD CELL COUNT 4.07 mill/uL (4.2-5.4); RED CELL DISTRIBUTION WIDTH 17.2 % (11.6-14.6)
[2019-12-09 14:06] LABS: CHLORIDE 100 mEq/L (98-107)
[2019-12-09 14:12] LABS: PHOSPHORUS 7.1 mg/dL (2.5-4.9)
[2019-12-09 16:00] VITALS: BP 125/78
[2019-12-09 20:00] VITALS: BP 157/82
[2019-12-09] MEDS: ATORVASTATIN CALCIUM 40MG TABLET PO SCH (20:51)
[2019-12-10] VITALS: BP 151/79
[2019-12-10] MEDS: CEFEPIME 500 MG in DEXTROSE 5% WATER 50 ML IV SCH (01:49)
[2019-12-10 04:00] VITALS: BP 153/67
[2019-12-10 06:03] LABS: BASOPHILS % 0.5 % (0.0-2.0); HEMATOCRIT. 39.5 % (36.0-48.0); HEMOGLOBIN. 13.3 g/dL (12.0-16.0); LYMPHOCYTES % 16.2 % (20.0-50.0); MEAN CORPUSCULAR HEMOGLOBIN 30.6 pg (28.0-32.0); MEAN CORPUSCULAR VOLUME 90.8 fL (81.0-99.0); MEAN PLATELET VOLUME 9.2 fl (7.4-10.4); MONOCYTES % 9.5 % (2.0-8.0); NEUTROPHILS % 71.8 % (40.0-76.0); PLATELET 202 x1000/uL (130-400); RED BLOOD CELL COUNT 4.34 mill/uL (4.2-5.4); RED CELL DISTRIBUTION WIDTH 17.2 % (11.6-14.6)
[2019-12-10] MEDS: INSULIN LISPRO 100 UNITS/ML SUBCUT SCH ×4 (07:50→21:00)
[2019-12-10] MEDS: BLOOD SUGAR DIAGNOSTIC STRIP TEST SCH ×4 (07:59→21:27)
[2019-12-10 08:00] VITALS: BP 148/78
[2019-12-10] MEDS: ASPIRIN 81MG EC TABLET PO SCH (08:34)
[2019-12-10] MEDS: ASCORBIC ACID 500 MG TABLET PO SCH (08:34)
[2019-12-10] MEDS: FOLIC ACID/VITAMIN B COMP W-C TABLET PO SCH (08:35)
[2019-12-10] MEDS: ZINC SULFATE 220 MG ( 50 ) CAPSULE PO SCH (08:35)
[2019-12-10] MEDS: SEVELAMER CARBONATE 800 MG TABLET PO SCH ×3 (08:35→18:07)
[2019-12-10] MEDS: LEVETIRACETAM 1,000 MG in SODIUM CHLORIDE 0.9% 100 ML IV SCH ×2 (08:36→21:26)
[2019-12-10] MEDS: ISOSORBIDE MONONITRATE 60MG TABLET SR 24HR PO SCH (08:39)
[2019-12-10] MEDS: METOPROLOL TARTRATE 50MG TABLET PO SCH ×2 (08:41→21:27)
[2019-12-10] MEDS ORDERED: IPRATROPIUM/ALBUTEROL 0.5-3(2.5)MG/3ML NEB HHN PRN (11:15)
[2019-12-10 12:00] VITALS: BP 155/75
[2019-12-10 16:00] VITALS: BP 149/65
[2019-12-10 20:00] VITALS: BP 169/85
[2019-12-10] MEDS: ATORVASTATIN CALCIUM 40MG TABLET PO SCH (21:26)
[2019-12-11] VITALS: BP 156/88
[2019-12-11 04:00] VITALS: BP 154/83
[2019-12-11] MEDS: CEFEPIME 500 MG in DEXTROSE 5% WATER 50 ML IV SCH (04:54)
[2019-12-11] MEDS: BLOOD SUGAR DIAGNOSTIC STRIP TEST SCH ×3 (06:57→17:20)
[2019-12-11] MEDS: INSULIN LISPRO 100 UNITS/ML SUBCUT SCH ×4 (06:57→21:00)
[2019-12-11] MEDS: SEVELAMER CARBONATE 800 MG TABLET PO SCH ×3 (07:03→18:25)
[2019-12-11 07:14] LABS: BASOPHILS % 0.4 % (0.0-2.0); EOSINOPHILS % 2.9 % (0.0-5.0); HEMATOCRIT. 36.5 % (36.0-48.0); LYMPHOCYTES % 15.3 % (20.0-50.0); MEAN CORPUSCULAR HEMOGLOBIN 29.7 pg (28.0-32.0); MEAN CORPUSCULAR VOLUME 90.7 fL (81.0-99.0); MEAN PLATELET VOLUME 9.3 fl (7.4-10.4); MONOCYTES % 8.8 % (2.0-8.0); NEUTROPHILS % 72.6 % (40.0-76.0); PLATELET 198 x1000/uL (130-400); RED BLOOD CELL COUNT 4.03 mill/uL (4.2-5.4); RED CELL DISTRIBUTION WIDTH 16.7 % (11.6-14.6)
[2019-12-11 07:34] LABS: PHOSPHORUS 7.2 mg/dL (2.5-4.9)
[2019-12-11 08:20] VITALS: BP 171/87
[2019-12-11] MEDS: LEVETIRACETAM 1,000 MG in SODIUM CHLORIDE 0.9% 100 ML IV SCH ×2 (09:40→21:31)
[2019-12-11] MEDS: FOLIC ACID/VITAMIN B COMP W-C TABLET PO SCH (09:41)
[2019-12-11] MEDS: ISOSORBIDE MONONITRATE 60MG TABLET SR 24HR PO SCH (09:41)
[2019-12-11] MEDS: AMLODIPINE 10MG TABLET PO SCH (09:41)
[2019-12-11] MEDS: ASPIRIN 81MG EC TABLET PO SCH (09:41)
[2019-12-11] MEDS: METOPROLOL TARTRATE 50MG TABLET PO SCH ×2 (09:42→20:51)
[2019-12-11 12:02] VITALS: BP 160/84
[2019-12-11] MEDS: LOSARTAN POTASSIUM 50 MG TABLET PO SCH (12:15)
[2019-12-11 15:42] VITALS: BP 141/73
[2019-12-11] MEDS: ENOXAPARIN 30MG/0.3ML SYR SUBCUT SCH (16:00)
[2019-12-11 20:00] VITALS: BP 141/81
[2019-12-11] MEDS: ATORVASTATIN CALCIUM 40MG TABLET PO SCH (20:50)
[2019-12-12] VITALS (7 sets, daily range): BP systolic 115–161; BP diastolic 56–92
[2019-12-12] MEDS: CEFEPIME 500 MG in DEXTROSE 5% WATER 50 ML IV SCH (03:19)
[2019-12-12] MEDS: INSULIN LISPRO 100 UNITS/ML SUBCUT SCH ×3 (07:29→17:02)
[2019-12-12 07:32] LABS: BASOPHILS % 0.5 % (0.0-2.0); EOSINOPHILS % 2.7 % (0.0-5.0); HEMATOCRIT. 38.6 % (36.0-48.0); HEMOGLOBIN. 12.7 g/dL (12.0-16.0); LYMPHOCYTES % 13.3 % (20.0-50.0); MEAN CORPUSCULAR HEMOGLOBIN 29.7 pg (28.0-32.0); MEAN CORPUSCULAR VOLUME 90.7 fL (81.0-99.0); MEAN PLATELET VOLUME 9.1 fl (7.4-10.4); MONOCYTES % 8.4 % (2.0-8.0); NEUTROPHILS % 75.1 % (40.0-76.0); PLATELET 217 x1000/uL (130-400); RED BLOOD CELL COUNT 4.26 mill/uL (4.2-5.4); RED CELL DISTRIBUTION WIDTH 16.8 % (11.6-14.6)
[2019-12-12 07:36] LABS: PHOSPHORUS 5.3 mg/dL (2.5-4.9)
[2019-12-12] MEDS: ASPIRIN 81MG EC TABLET PO SCH (09:28)
[2019-12-12] MEDS: AMLODIPINE 10MG TABLET PO SCH (09:28)
[2019-12-12] MEDS: FOLIC ACID/VITAMIN B COMP W-C TABLET PO SCH (09:28)
[2019-12-12] MEDS: LOSARTAN POTASSIUM 50 MG TABLET PO SCH (09:29)
[2019-12-12] MEDS: SEVELAMER CARBONATE 800 MG TABLET PO SCH ×2 (09:29→16:17)
[2019-12-12] MEDS: ISOSORBIDE MONONITRATE 60MG TABLET SR 24HR PO SCH (09:29)
[2019-12-12] MEDS: METOPROLOL TARTRATE 50MG TABLET PO SCH (09:29)
[2019-12-12] MEDS: LEVETIRACETAM 1,000 MG in SODIUM CHLORIDE 0.9% 100 ML IV SCH (09:30)
[2019-12-12] MEDS: BLOOD SUGAR DIAGNOSTIC STRIP TEST SCH ×2 (12:20→16:49)
[2019-12-12] MEDS: ENOXAPARIN 30MG/0.3ML SYR SUBCUT SCH (16:17)
== END 2019-12-12 18:00 | disposition short-term general hospital (02) | DRG 720 ==
LOC: ER 09:26 → 6WST 13:50 → ENRESERV 19:22 → MICUSO 12-07 01:53 → 7WST 12-08 14:47 → 6WST 12-09 22:43
PROVIDERS: ADMIT Internal Medicine; ATTEND Internal Medicine
PROC: 5A1D70Z Performance of Urinary Filtration, Intermittent, Less than 6 Hours Per Day (ICD-10-PCS; 2019-12-09)
PROC: 4A10X4Z Monitoring of Central Nervous Electrical Activity, External Approach (ICD-10-PCS; principal; 2019-12-11)
PROC: 5A1D70Z Performance of Urinary Filtration, Intermittent, Less than 6 Hours Per Day (ICD-10-PCS; 2019-12-11)
PROC: 5A1D70Z Performance of Urinary Filtration, Intermittent, Less than 6 Hours Per Day (ICD-10-PCS; 2019-12-12)
DX: A41.9 Sepsis, unspecified organism (principal); J96.00 Acute respiratory failure, unspecified whether with hypoxia or hypercapnia; I13.2 Hypertensive heart and chronic kidney disease with heart failure and with stage 5 chronic kidney disease, or end stage renal disease; N18.6 End stage renal disease; J15.9 Unspecified bacterial pneumonia; I24.8 Other forms of acute ischemic heart disease; E87.2 Acidosis; E11.22 Type 2 diabetes mellitus with diabetic chronic kidney disease; I27.29 Other secondary pulmonary hypertension; E87.5 Hyperkalemia; G40.909 Epilepsy, unspecified, not intractable, without status epilepticus; E66.9 Obesity, unspecified; I31.3 Pericardial effusion (noninflammatory); I36.1 Nonrheumatic tricuspid (valve) insufficiency; J44.0 Chronic obstructive pulmonary disease with (acute) lower respiratory infection; I50.33 Acute on chronic diastolic (congestive) heart failure; Z99.2 Dependence on renal dialysis; Z88.8 Allergy status to other drugs, medicaments and biological substances; Z79.84 Long term (current) use of oral hypoglycemic drugs; Z79.899 Other long term (current) drug therapy; I69.351 Hemiplegia and hemiparesis following cerebral infarction affecting right dominant side; Z98.891 History of uterine scar from previous surgery; Z82.49 Family history of ischemic heart disease and other diseases of the circulatory system; I69.320 Aphasia following cerebral infarction; Z03.818 Encounter for observation for suspected exposure to other biological agents ruled out; Z68.33 Body mass index [BMI] 33.0-33.9, adult
CPT/HCPCS: 36415; 36600; 70551; 71045; 80048; 80053; 80061; 82140; 82375; 82805; 82962; 83036; 83735; 83880; 84100; 84145; 84484; 85025; 87635; 93005; 95816; 97162; 97166; 97530; 97535; 99291; J0360; J0692; J1650; J1815; J1953; J2060; J3490; J7050; J7060

== ENCOUNTER 2020-06-03 13:15 | Inpatient (IN) | payer MEDICARE, MEDICAID ==
[~2020-06-03] VITALS: Ht 162.6 cm; Wt 97.1 kg
[2020-06-03] MEDS ORDERED: NITROGLYCERIN OINT 1GM/INCH UDPKT TD ONE (14:30)
[2020-06-03] MEDS ORDERED: ASPIRIN 81MG TABLET PO ONE (14:30)
[2020-06-03] MEDS ORDERED: HYDROCODONE/ACETAMINOPHEN 5/325MG TABLET PO ONE (14:45)
[2020-06-03 15:29] LABS: BASOPHILS % 0.4 % (0.0-2.0); EOSINOPHILS % 2.7 % (0.0-5.0); HEMATOCRIT. 39.5 % (36.0-48.0); HEMOGLOBIN. 12.9 g/dL (12.0-16.0); LYMPHOCYTES % 16.4 % (20.0-50.0); MEAN CORPUSCULAR HEMOGLOBIN 29.5 pg (28.0-32.0); MEAN PLATELET VOLUME 8.9 fl (7.4-10.4); MONOCYTES % 8.6 % (2.0-8.0); NEUTROPHILS % 71.9 % (40.0-76.0); PLATELET 180 x1000/uL (130-400); RED BLOOD CELL COUNT 4.39 mill/uL (4.2-5.4); RED CELL DISTRIBUTION WIDTH 14.5 % (11.6-14.6)
[2020-06-03 15:37] LABS: CHLORIDE 99 mEq/L (98-107)
[2020-06-03] MEDS ORDERED: HYDROCODONE/APAP 7.5/325MG 1 TAB TABLET PO PRN (18:45)
[2020-06-03] MEDS ORDERED: CLONIDINE 0.1MG TABLET PO PRN (21:15)
[2020-06-03] MEDS ORDERED: ONDANSETRON HCL 4MG/2ML INJ IV PRN (21:15)
[2020-06-03] MEDS ORDERED: DOCUSATE SODIUM 100MG CAPSULE PO PRN (21:15)
[2020-06-03] MEDS ORDERED: HYDROCODONE/ACETAMINOPHEN 5/325MG TABLET PO PRN (21:15)
[2020-06-03] MEDS ORDERED: LORAZEPAM 0.5MG TABLET PO PRN (21:15)
[2020-06-03] MEDS ORDERED: IPRATROPIUM/ALBUTEROL 0.5-3(2.5)MG/3ML NEB HHN PRN (21:15)
[2020-06-03] MEDS ORDERED: ACETAMINOPHEN 325MG TABLET PO PRN (21:15)
[2020-06-03] MEDS: NIFEDIPINE XL 60MG TAB PO SCH (22:24)
[2020-06-03 23:46] LABS: *AMPHETAMINES SCREEN URINE NEGATIVE (NEGATIVE)
[2020-06-03 23:47] LABS: *BARBITURATES SCREEN URINE NEGATIVE (NEGATIVE); *BENZODIAZEPINES SCREEN URINE NEGATIVE (NEGATIVE); *COCAINE SCREEN URINE NEGATIVE (NEGATIVE); METHADONE URINE SCREEN NEGATIVE (NEGATIVE); OPIATES URINE SCREEN NEGATIVE (NEGATIVE)
[2020-06-03 23:48] LABS: CANNABINOID URINE SCREEN NEGATIVE (NEGATIVE); PHENCYCLIDINE URINE SCREEN NEGATIVE (NEGATIVE)
[2020-06-04] VITALS: BP_SYST 193; BP_SYST 196; BP_DIAS 100
[2020-06-04] MEDS ORDERED: ZOLP5TAB8 PO (01:09)
[2020-06-04] MEDS ORDERED: LEVE10006 PO (01:09)
[2020-06-04] MEDS ORDERED: GABA-529 PO (01:09)
[2020-06-04] MEDS ORDERED: LISI10TA5 PO (01:09)
[2020-06-04] MEDS ORDERED: ASPI-1497 PO (02:31)
[2020-06-04] MEDS ORDERED: ATOR10TA69 PO (02:31)
[2020-06-04 04:00] VITALS: BP 149/77
[2020-06-04 07:01] LABS: BASOPHILS % 0.5 % (0.0-2.0); EOSINOPHILS % 3.6 % (0.0-5.0); HEMATOCRIT. 38.3 % (36.0-48.0); HEMOGLOBIN. 12.4 g/dL (12.0-16.0); LYMPHOCYTES % 19.1 % (20.0-50.0); MEAN CORPUSCULAR HEMOGLOBIN 29.2 pg (28.0-32.0); MEAN CORPUSCULAR VOLUME 90.2 fL (81.0-99.0); MONOCYTES % 9.1 % (2.0-8.0); NEUTROPHILS % 67.7 % (40.0-76.0); PLATELET 172 x1000/uL (130-400); RED BLOOD CELL COUNT 4.24 mill/uL (4.2-5.4); RED CELL DISTRIBUTION WIDTH 14.6 % (11.6-14.6)
[2020-06-04 08:07] VITALS: BP 139/68
[2020-06-04] MEDS: NIFEDIPINE XL 60MG TAB PO SCH (09:01)
[2020-06-04] MEDS ORDERED: INFLUENZA VACCINE 05/PF 0.5 ML VIAL IM ONE (12:00)
[2020-06-04 12:13] VITALS: BP 114/43
[2020-06-04] MEDS: DILTIAZEM HCL 90MG TABLET PO SCH ×2 (14:00→21:13)
[2020-06-04] MEDS: ASPIRIN 81MG TABLET PO SCH (15:09)
[2020-06-04] MEDS: GABAPENTIN 100MG CAPSULE PO SCH ×2 (15:09→21:11)
[2020-06-04 16:06] VITALS: BP 135/72
[2020-06-04 20:17] VITALS: BP 126/57
[2020-06-04] MEDS: LEVETIRACETAM 500MG TABLET PO SCH (21:11)
[2020-06-04] MEDS: HYDRALAZINE HCL 100MG TABLET PO SCH (21:12)
[2020-06-04] MEDS: ATORVASTATIN CALCIUM 10MG TABLET PO SCH (21:12)
[2020-06-05 00:24] VITALS: BP 146/64
[2020-06-05] MEDS: IPRATROPIUM/ALBUTEROL 0.5-3(2.5)MG/3ML NEB HHN SCH ×2 (01:28→20:48)
[2020-06-05 04:00] VITALS: BP 107/51
[2020-06-05] MEDS: DILTIAZEM HCL 90MG TABLET PO SCH ×3 (05:28→21:40)
[2020-06-05] MEDS ORDERED: DEXTROSE 50% WATER 50ML SYRINGE IV PRN (06:30)
[2020-06-05 06:36] LABS: BASOPHILS % 0.4 % (0.0-2.0); EOSINOPHILS % 3.1 % (0.0-5.0); HEMATOCRIT. 35.8 % (36.0-48.0); HEMOGLOBIN. 11.7 g/dL (12.0-16.0); LYMPHOCYTES % 11.6 % (20.0-50.0); MEAN CORPUSCULAR HEMOGLOBIN 29.3 pg (28.0-32.0); MEAN CORPUSCULAR VOLUME 89.5 fL (81.0-99.0); MEAN PLATELET VOLUME 8.8 fl (7.4-10.4); MONOCYTES % 7.1 % (2.0-8.0); NEUTROPHILS % 77.8 % (40.0-76.0); PLATELET 167 x1000/uL (130-400); RED CELL DISTRIBUTION WIDTH 14.2 % (11.6-14.6)
[2020-06-05] MEDS: GABAPENTIN 100MG CAPSULE PO SCH ×3 (06:50→21:39)
[2020-06-05] MEDS: GLIPIZIDE 10MG TABLET PO SCH (06:50)
[2020-06-05] MEDS: BLOOD SUGAR DIAGNOSTIC STRIP TEST SCH ×3 (06:50→21:45)
[2020-06-05] MEDS: INSULIN LISPRO 100 UNITS/ML SUBCUT SCH ×3 (07:50→21:00)
[2020-06-05] MEDS: HYDRALAZINE HCL 100MG TABLET PO SCH ×2 (09:00→21:40)
[2020-06-05] MEDS: ASPIRIN 81MG TABLET PO SCH (09:03)
[2020-06-05] MEDS: LEVETIRACETAM 500MG TABLET PO SCH ×2 (09:03→21:40)
[2020-06-05 09:11] VITALS: BP 151/98
[2020-06-05] MEDS ORDERED: ROPINIROLE HCL 0.25MG TABLET PO PRN ×2 (11:15→12:30)
[2020-06-05 14:01] VITALS: BP 148/80
[2020-06-05 16:44] VITALS: BP 164/85
[2020-06-05 20:52] VITALS: BP 150/67
[2020-06-05] MEDS: ATORVASTATIN CALCIUM 10MG TABLET PO SCH (21:40)
[2020-06-06] VITALS: BP 127/53
[2020-06-06] MEDS: IPRATROPIUM/ALBUTEROL 0.5-3(2.5)MG/3ML NEB HHN SCH ×3 (02:09→14:08)
[2020-06-06 04:00] VITALS: BP 129/51
[2020-06-06] MEDS: GABAPENTIN 100MG CAPSULE PO SCH ×2 (05:38→14:04)
[2020-06-06] MEDS: DILTIAZEM HCL 90MG TABLET PO SCH ×2 (05:38→14:04)
[2020-06-06] MEDS: GLIPIZIDE 10MG TABLET PO SCH (06:42)
[2020-06-06] MEDS: BLOOD SUGAR DIAGNOSTIC STRIP TEST SCH ×2 (06:42→12:02)
[2020-06-06 07:22] LABS: BASOPHILS % 0.3 % (0.0-2.0); EOSINOPHILS % 3.5 % (0.0-5.0); HEMATOCRIT. 35.9 % (36.0-48.0); HEMOGLOBIN. 11.7 g/dL (12.0-16.0); LYMPHOCYTES % 12.4 % (20.0-50.0); MEAN CORPUSCULAR HEMOGLOBIN 29.2 pg (28.0-32.0); MEAN CORPUSCULAR VOLUME 89.2 fL (81.0-99.0); MEAN PLATELET VOLUME 8.9 fl (7.4-10.4); MONOCYTES % 7.3 % (2.0-8.0); NEUTROPHILS % 76.5 % (40.0-76.0); PLATELET 158 x1000/uL (130-400); RED BLOOD CELL COUNT 4.02 mill/uL (4.2-5.4); RED CELL DISTRIBUTION WIDTH 14.5 % (11.6-14.6)
[2020-06-06] MEDS: INSULIN LISPRO 100 UNITS/ML SUBCUT SCH ×2 (07:50→12:02)
[2020-06-06] MEDS: HYDRALAZINE HCL 100MG TABLET PO SCH (08:15)
[2020-06-06] MEDS: ASPIRIN 81MG TABLET PO SCH (08:15)
[2020-06-06] MEDS: LEVETIRACETAM 500MG TABLET PO SCH (08:16)
[2020-06-06 09:09] VITALS: BP 151/63
[2020-06-06] MEDS ORDERED: REGADENOSON 0.4 MG/5 ML IV NR (11:15)
[2020-06-06] MEDS ORDERED: [UNRECOGNIZED DRUG - CODE] PO (11:53)
[2020-06-06 12:37] VITALS: BP 148/67
[2020-06-06 12:45] VITALS: BP 148/67
== END 2020-06-06 17:10 | disposition home or self-care (01) | DRG 205 ==
LOC: ER 13:15 → 6WST 17:36 → EDBEDREQ 17:41 → EDBEDREQTM 17:41 → ENRESERV 19:53
PROVIDERS: ADMIT Internal Medicine; ATTEND Internal Medicine
PROC: 5A1D70Z Performance of Urinary Filtration, Intermittent, Less than 6 Hours Per Day (ICD-10-PCS; principal; 2020-06-04)
DX: M94.0 Chondrocostal junction syndrome [Tietze] (principal); N18.6 End stage renal disease; I12.0 Hypertensive chronic kidney disease with stage 5 chronic kidney disease or end stage renal disease; E11.22 Type 2 diabetes mellitus with diabetic chronic kidney disease; J44.9 Chronic obstructive pulmonary disease, unspecified; E78.5 Hyperlipidemia, unspecified; E66.01 Morbid (severe) obesity due to excess calories; I07.1 Rheumatic tricuspid insufficiency; I27.20 Pulmonary hypertension, unspecified; J45.909 Unspecified asthma, uncomplicated; G40.909 Epilepsy, unspecified, not intractable, without status epilepticus; I69.30 Unspecified sequelae of cerebral infarction; Z99.81 Dependence on supplemental oxygen; Z99.2 Dependence on renal dialysis; Z68.36 Body mass index [BMI] 36.0-36.9, adult; Z79.82 Long term (current) use of aspirin; Z79.899 Other long term (current) drug therapy
CPT/HCPCS: 36415; 71045; 80048; 80053; 80305; 82962; 83036; 83735; 84100; 84484; 85025; 90686; 93005; 93306; 93970; 94640; 97162; 99285